=== PATIENT | male | born 1965 | race Caucasian/White ===

== ENCOUNTER → 2024-10-19 | Day surgery (SDC) | payer BC ==
[~2024-10-19] MED LIST: Dexamethasone 4 MG/ML SDV ONE; Ketorolac 30 MG/ML SDV ONE; Naloxone 0.4 MG/ML SDV IVPUSH PRN; Ondansetron 4 MG/2 ML SDV ONE; Propofol 200 MG/20 ML SDV ONE; Rocuronium 50 MG/5 ML Vial ONE; Succinylcholine 200 MG/10 ML MDV ONE; droPERidol 5 MG/2 ML SDV ONE; fentaNYL 100 MCG/2 ML SDV ONE; fentaNYL 250 MCG/5 ML SDV ONE
[2024-10-19 15:34] LABS: BASOPHILS ABSOLUTE AUTO 0.05 K/uL (0.00-0.10); BASOPHILS PERCENT AUTO 0.7 % (0.1-1.3); EOSINOPHILS PERCENT AUTO 1.4 % (0.0-5.4); HEMATOCRIT 42.3 % (38.4-49.7); HEMOGLOBIN 15.2 g/dL (12.9-16.9); IMMATURE GRAN ABSOLUTE AUTO 0.07 K/uL (0.00-0.23); LYMPHOCYTES ABSOLUTE AUTO 1.89 K/uL (0.8-3.3); MEAN CORPUSCULAR HEMOGLOBIN 32.5 pg (31.6-35.5); MEAN CORPUSCULAR HGB CONC 35.9 g/dL (31.6-35.5); MEAN CORPUSCULAR VOLUME 90.4 fL (81.4-99.0); MONOCYTES ABSOLUTE AUTO 0.53 K/uL (0.20-0.90); MONOCYTES PERCENT AUTO 7.3 % (3.3-12.6); NEUTROPHILS ABSOLUTE AUTO 4.63 K/uL (1.0-7.6); NEUTROPHILS PERCENT AUTO 63.6 % (40.0-78.1); PLATELET COUNT,PLT 160 K/uL (130-375); RED BLOOD CELL COUNT 4.68 M/uL (4.14-5.76); WHITE BLOOD CELL COUNT,WBC 7.3 K/uL (3.2-11.0)
[2024-10-19] MEDS: Sodium Chloride 0.9% 1,000 ML IV ONE (15:45)
[2024-10-19] MEDS: HYDROmorphone 0.5 MG/0.5 ML Syringe IVPUSH ONE (15:46)
[2024-10-19 15:49] LABS: ANION GAP 12.3 mmol/L (5.0-14.0); BLOOD UREA NITROGEN,BUN 22 mg/dL (7-18); CALCIUM 9.1 mg/dL (8.5-10.1); CARBON DIOXIDE,CO2 24 mmol/L (21-32); CHLORIDE,CL 105 mmol/L (100-108); CREATININE 1.3 mg/dL (0.8-1.3); ESTIMATED GFR 63 mL/min (>60); GLUCOSE RANDOM 123 mg/dL (74-106); POTASSIUM,K 3.6 mmol/L (3.6-5.2); SODIUM,NA 141 mmol/L (140-148)
[2024-10-19] MEDS: HYDROmorphone 0.5 MG/0.5 ML Syringe ONE (15:54)
[2024-10-19] MEDS: Diphtheria,Pertussis(Acell),Tetanus Vaccine 0.5 ML Syringe IM ONE (16:10)
[2024-10-19] MEDS: ceFAZolin 2 GM in Sodium Chloride 0.9% 50 ML IV ONE (16:10)
[2024-10-19] MEDS: Scopalamine 1mg/3day Transdermal Patch TRDERM ONE (16:30)
[2024-10-19] MEDS: Bupivacaine 0.5% 50 ML MDV ONE (17:15)
[2024-10-19] MEDS: Lidocaine 1% with EPINEPHrine 1:100,000 50 ML MDV ONE (17:15)
== END ==
LOC: JP.ED 15:25 → JP.SDS 16:00 → JP.ED 19:08
PROVIDERS: ATTEND Surgery
DX: S51.812A Laceration without foreign body of left forearm, initial encounter (principal); Z88.0 Allergy status to penicillin; Z79.899 Other long term (current) drug therapy; Z23 Encounter for immunization; W26.8XXA Contact with other sharp object(s), not elsewhere classified, initial encounter; Y93.89 Activity, other specified
CPT/HCPCS: 00400; 36415; 73090; 80048; 85025; 86850; 86900; 86901; 90471; 90715; 96365; 96375; 99283; A9270; J0330; J0665; J0690; J1100; J1790; J1885; J2405; J2704; J3010; J7030; J3490